=== PATIENT | female | born 1970 | race Caucasian/White ===

== ENCOUNTER 2016-08-02 14:28 | Emergency (ER) | payer MEDICAID ==
[~2016-08-02] VITALS: Wt 100.0 kg
[~2016-08-02 14:28] MED LIST: AMOX1TAB10 PO; FLUC150T17 PO; IBUP-1542 PO
[2016-08-02] MEDS ORDERED: BENZ100C70 PO (15:01)
[2016-08-02] MEDS ORDERED: ALBU8.5H3 INH (15:01)
[2016-08-02] MEDS ORDERED: AZIT250T94 PO (15:01)
[2016-08-02] MEDS ORDERED: ACET500C5 PO (15:01)
--- NOTE | 2016-08-02 15:28 | ERD ---
ER Documentation Chief Complaint Date/Time DATE: 08/02/16 TIME: 15:25 Chief Complaint SORE THROAT FOR THE PAST FEW DAYS. RECENT COUGHING HPI 46-year-old female patient with no significant past medical history presents to the ED complaining of a sore throat and productive cough that started 5 days ago. Reports that she is coughing up yellow phlegm. States that she has tried drinking lemon and honey with hot water but has not alleviated her symptoms. States that she also got her daughter is sick. Denies any abdominal pain, hemoptysis, nausea, vomiting, diarrhea, chest pain, shortness of breath, wheezing, dyspnea on exertion, leg swelling. ROS All systems reviewed and are negative except as per history of present illness. Medications Home Meds Active Scripts Acetaminophen* (Tylophen*) 500 Mg Capsule, 1 CAP PO Q6H Y for PAIN AND OR ELEVATED TEMP, #20 CAP Prov:VIAJY MELO PA-C 08/02/16 Azithromycin* (Zithromax*) 250 Mg Tablet, 250 MG PO .ZPACK DIRECTED, #6 TAB TAKE 500 MG (2 TABS) THE FIRST DAY THEN 250 MG (1 TAB) DAYS 2-5 Prov:VIJAY MELO PA-C 08/02/16 Albuterol Sulfate* (Proair HFA*) 8.5 Gm Hfa.aer.ad, 2 PUFF INH Q4, #1 INHALER Prov:VIJAY MELOC 08/02/16 Benzonatate* (Tessalon Perle*) 100 Mg Capsule, 100 MG PO Q8H Y for COUGH, #20 CAP Prov:VIJAY MELO PA-C 08/02/16 Ibuprofen* (Motrin*) 600 Mg Tab, 600 MG PO Q6, #30 TAB Prov:GLORIA SALMERON 12/18/15 Amoxicillin/Potassium Clav (Amox-Clav 875-125 mg Tablet) 875-125 mg Tab, 1 TAB PO BID for 10 Days, #20 TAB Prov:GLORIA SALMERON 12/18/15 Ibuprofen* (Motrin*) 600 Mg Tab, 600 MG PO Q6, #14 TAB Prov:ZARINA MENJIVAR MD 09/24/14 Fluconazole* (Diflucan*) 150 Mg Tablet, 150 MG PO ONCE, #1 TAB Prov:ZARINA MENJIVAR MD 09/24/14 Allergies Allergies: Coded Allergies: No Known Allergy (Unverified , 10/09/13) PMhx/Soc Hx Alcohol Use: No Hx Substance Use: No Hx Tobacco Use: No Physical Exam Vitals Vital Signs Date Time Temp Pulse Resp B/P Pulse Ox O2 Delivery O2 Flow Rate FiO2 08/02/16 14:31 98.1 83 21 155/81 98 Physical Exam Const: Dri-nqy-tftnuynqx, well-nourished. In no acute distress. Head: Atraumatic, normocephalic Eyes: Normal Conjunctiva without injection. No purulent discharge. PERRL. EOMI ENT: Normal external ear. Ear canal without erythema. Tympanic membrane pearly ayala without effusion or bulging. Nasal canal clear with normal turbinates. Moist oropharynx without tonsillar exudates. Non-erythematous pharynx. Uvula midline. No drooling. No trismus. Neck: Full range of motion. No meningismus. No cervical lymphadenopathy. Resp: Slight coarse breath sounds noted however no wheezing, rhonchi, rales, or crackles. No accessory muscle use. No retractions. Cardio: Regular rate and rhythm. No murmurs, rubs or gallops. Abd: Soft, non tender, non distended. Normal bowel sounds. No palpable masses. No rebound tenderness. No guarding. Skin: No petechiae or rashes Back: No midline tenderness. No CVA tenderness. Ext: No cyanosis, or edema. Neur: Awake and alert. Psych: Normal Mood and Affect Procedures/MDM This is a 46-year-old female patient with no significant past medical history presents the ED complaining of sore throat and productive cough that started 5 days ago. Patient is afebrile and nontoxic-appearing. Patient has normal vital signs. This patient presents to the ED with symptoms consistent with bronchitis. Patient's daughter has similar symptoms. Patient is speaking in full sentences. There is a low suspicion for anaphylaxis, pneumonia, pneumothorax, mononucleosis, pulmonary embolism, epiglottitis, otitis media, otitis externa, viral/strep pharyngitis, sinusitis, peritonsillar abscess, mastoiditis, retropharyngeal abscess, meningitis, sepsis, acute abdomen or other emergent conditions. Fluids, rest, and symptomatic treatment are recommended for the management of patient's symptoms. Discharge medications: Tylenol, Zithromax, Pro-air Patient was instructed to return to the ED for any new or worsening symptoms. They should otherwise follow up with the primary care provider within 1-2 days. The patient's questions were answered at the time of discharge. Patient understood and agreed with discharge management. Departure Diagnosis: Primary Impression: Sore throat Additional Impression: Productive cough Condition: Stable Patient Instructions: Self-Care for Sore Throats, Bronchitis, Antiobiotic Treatment (Adult) Referrals[facility] Usted se shirley hecho un examen mdico de control que le indica que no est en kwabena condicin que requiera tratamiento urgente en el Departamento de Emergencia. Un estudio ms profundo y el tratamiento de del real condicin pueden esperar sin ningn riesgo hasta que usted sea atendida/o en el consultorio de del real mdico o kwabean cl joe. Es responsabilidad suya arreglar kwabena chris para el seguimiento del marbella. MANEJO DE CONDICIONES NO URGENTES EN EL FUTURO 1) Si usted tiene un mdico de atencin primaria: Usted debera llamar a del real mdico de atencin primaria antes de venir al departamento de emergencia. Despus de las horas de consultorio, del real doctor o del real asociado/a est disponible por telfono. El mdico o enfermero de joseph en el servicio telefnico puede asesorarle por edmundo medio para atender el problema, o marbella contrario se puede programar kwabena chris. 2) Si usted no tiene un mdico de atencin primaria: Llame al mdico o clnica de referencia que aparece abajo hetal las horas de consultorio para hacer kwabena chris para que le vean. CLINICAS: [facility] [phone] [address] [facility] 691 [phone] [address] [facility] [phone] [facility] [phone] [place] [id number] [phone] [facility]. [phone] [address] [facility]. [facility] () Usted se shirley hecho un examen mdico de control que le indica que no est en kwabena condicin que requiera tratamiento urgente en el Departamento de Emergencia. Un estudio ms profundo y el tratamiento de del real condicin pueden esperar sin ningn riesgo hasta que usted sea atendida/o en el consultorio de del real mdico o kwabena cl joe. Es responsabilidad suya arreglar kwabena chris para el seguimiento del marbella. MANEJO DE CONDICIONES NO URGENTES EN EL FUTURO 1) Si usted tiene un mdico de atencin primaria: Usted debera llamar a del real mdico de atencin primaria antes de venir al departamento de emergencia. Despus de las horas de consultorio, del real doctor o del real asociado/a est disponible por telfono. El mdico o enfermero de joseph en el servicio telefnico puede asesorarle por edmundo medio para atender el problema, o marbella contrario se puede programar kwabena chris. 2) Si usted no tiene un mdico de atencin primaria: Llame al mdico o condado institucions de referencia que aparece abajo hetal las horas de consultorio para hacer kwabena chris para que le vean. SI USTED NO PUEDE PAGAR PARA MORENA UN MEDICO puede ir a: [facility] [address] [place] [address] [facility] [address] [place] [address] [facility] [address] [place] [address] PARA MAURICIO [facility] [address] [place] [address] [facility] Additional Instructions: Llame al doctor santo kwabena CHRIS PARA DENTRO DE 2-3 HARP.Dgale a la secretaria que nosotros le instruimos hacer esta chris.Avise o llame si del real condicin se empeora antes de la chris. Regresa aqui si peor o no mejor. VIJAY MELO PA-C August 02, 2016 15:28
== END 2016-08-02 15:03 | disposition home or self-care (01) ==
LOC: E/R 14:28
DX: J02.9 Acute pharyngitis, unspecified (principal); R05 Cough
CPT/HCPCS: 99284

== ENCOUNTER 2016-12-08 14:59 | Emergency (ER) | payer MEDICAID ==
[~2016-12-08] VITALS: Ht 157.5 cm; Wt 80.0 kg
[~2016-12-08 14:59] MED LIST changes: +ACET500C5 PO; +ALBU8.5H3 INH; +AZIT250T94 PO; +BENZ100C70 PO
[2016-12-08 15:07] VITALS: Ht 157.5 cm; Wt 80.0 kg
[2016-12-08] MEDS ORDERED: NPH10OT RIGHT EAR (15:56)
[2016-12-08 16:09] VITALS: BP 136/70; PULSE 72; RESP 18; TEMP 98
--- NOTE | 2016-12-08 17:01 | ERD ---
ER Documentation Chief Complaint Date/Time DATE: 12/08/16 TIME: 16:56 Chief Complaint RIGHT EAR PAIN HPI This is a 46-year-old female presents to the ER with right ear pain for the last 5 days. Patient states that pain is getting significantly worse. Patient denies any discharge. She denies any fevers or chills. Patient has not been taking any medication for the pain. ROS 12 point review of systems was done, all negative except per HPI. Medications Home Meds Active Scripts Neomycin/Polymyxin/Hydrocort* (Cortisporin* Otic) 10 Ml Susp, 4 DROP RIGHT EAR QID for 7 Days, #1 EA Prov:GLORIA SALMERON 12/08/16 Acetaminophen* (Tylophen*) 500 Mg Capsule, 1 CAP PO Q6H Y for PAIN AND OR ELEVATED TEMP, #20 CAP Prov:VIJAY MELO PA-C 08/02/16 Azithromycin* (Zithromax*) 250 Mg Tablet, 250 MG PO .ZPACK DIRECTED, #6 TAB TAKE 500 MG (2 TABS) THE FIRST DAY THEN 250 MG (1 TAB) DAYS 2-5 Prov:VIJAY MELO PA-C 08/02/16 Albuterol Sulfate* (Proair HFA*) 8.5 Gm Hfa.aer.ad, 2 PUFF INH Q4, #1 INHALER Prov:VIJAY MELO PA-C 08/02/16 Benzonatate* (Tessalon Perle*) 100 Mg Capsule, 100 MG PO Q8H Y for COUGH, #20 CAP Prov:VIJAY MELO PA-C 08/02/16 Ibuprofen* (Motrin*) 600 Mg Tab, 600 MG PO Q6, #30 TAB Prov:GLORIA SALMERON 12/18/15 Amoxicillin/Potassium Clav (Amox-Clav 875-125 mg Tablet) 875-125 mg Tab, 1 TAB PO BID for 10 Days, #20 TAB Prov:GLORIA SALMERON 12/18/15 Ibuprofen* (Motrin*) 600 Mg Tab, 600 MG PO Q6, #14 TAB Prov:ZARINA MENJIVAR MD 09/24/14 Fluconazole* (Diflucan*) 150 Mg Tablet, 150 MG PO ONCE, #1 TAB Prov:ZARINA MENJIVAR MD 09/24/14 Allergies Allergies: Coded Allergies: No Known Allergy (Unverified , 10/09/13) PMhx/Soc Medical and Surgical Hx: pt denies Medical Hx, pt denies Surgical Hx Hx Alcohol Use: No Hx Substance Use: No Hx Tobacco Use: No Smoking Status: Never smoker Physical Exam Vitals Vital Signs Date Time Temp Pulse Resp B/P Pulse Ox O2 Delivery O2 Flow Rate FiO2 12/08/16 16:09 98.0 72 18 136/70 100 Room Air 12/08/16 15:07 97.8 71 18 148/73 99 Physical Exam GENERAL: The patient is well developed and appropriate for usual state of health , in no apparent distress. HEENT: Atraumatic. Conjunctivae are pink. Pupils equal, round, and reactive to light. Extraocular muscles are grossly intact. Bilateral tympanic membranes are clear with no evidence of erythema, effusion or dulling of the light reflex. Patient has right ear canal with discharge. The oropharynx is clear with no erythema or exudates. CHEST: Clear to auscultation bilaterally. There are no rales, wheezes or rhonchi. HEART: Regular rate and rhythm. No murmurs, clicks, rubs or gallops. NEURO: Alert and oriented. SKIN: There is no apparent rash or petechia. The skin is warm and dry. Procedures/MDM This is a 46-year-old female presents to the ER with right ear pain. Patient does have external otitis. Suspicion for serious otitis media, osteitis is low. Patient does not have any mastoid tenderness. She will be sent with ibuprofen and with Cortisporin. She is to follow-up with her primary care doctor within 1-2 days return to ER sooner if symptoms worsen. My medical decision making shared with the patient she understands and agrees with plan. Departure Diagnosis: Primary Impression: Otitis externa Condition: Stable Patient Instructions: External Ear Infection (Adult) Referrals: [facility] Usted se shirley hecho un examen mdico de control que le indica que no est en kwabena condicin que requiera tratamiento urgente en el Departamento de Emergencia. Un estudio ms profundo y el tratamiento de del real condicin pueden esperar sin ningn riesgo hasta que usted sea atendida/o en el consultorio de del real mdico o kwabena cl joe. Es responsabilidad suya arreglar kwabena chris para el seguimiento del marbella. MANEJO DE CONDICIONES NO URGENTES EN EL FUTURO 1) Si usted tiene un mdico de atencin primaria: Usted debera llamar a del real mdico de atencin primaria antes de venir al departamento de emergencia. Despus de las horas de consultorio, del real doctor o del real asociado/a est disponible por telfono. El mdico o enfermero de joseph en el servicio telefnico puede asesorarle por edmundo medio para atender el problema, o marbella contrario se puede programar kwabena chris. 2) Si usted no tiene un mdico de atencin primaria: Llame al mdico o clnica de referencia que aparece abajo hetal las horas de consultorio para hacer kwabena chris para que le vean. CLINICAS: [facility] [phone] [address] [facility] [phone] [address] [facility]. [facility] [phone] [address] [facility]. [place] [address] [phone] [facility]. [place] [id number] [phone] [facility]. [phone] [address] Additional Instructions: Llame al doctor MAANA y santo kwabena CHRIS PARA DENTRO DE 1-2 HARP.Dgale a la secretaria que nosotros le instruimos hacer esta chris.Avise o llame si del real condicin se empeora antes de la chris. Regresa aqui si peor o no mejor. GLORIA SALMERON Dec 08, 2016 17:01
== END 2016-12-08 16:05 | disposition home or self-care (01) ==
LOC: FTE 14:59
DX: H60.91 Unspecified otitis externa, right ear (principal)
CPT/HCPCS: 99283

== ENCOUNTER 2017-12-10 10:34 | Emergency (ER) | END 2017-12-10 13:30 | disposition home or self-care (01) ==